=== PATIENT | female | born 1975 | race Caucasian/White ===

== ENCOUNTER 2017-01-21 08:50 | Emergency (ER) | payer BC ==
[~2017-01-21] VITALS: Ht 170.2 cm; Wt 90.9 kg
[~2017-01-21 08:50] MED LIST: CIPR500T87 PO; HYDR-3241 PO; NONE PER PT; ONDA4TAB10 PO; OXYC-302 PO
[2017-01-21 09:27] LABS: PATH.CAST-FLAG NOT PRESENT; SPERM-FLAG NOT PRESENT; SRC-FLAG NOT PRESENT; XTAL-FLAG NOT PRESENT; YLC-FLAG NOT PRESENT
[2017-01-21 09:29] LABS: HCG UR OBC PASS
[2017-01-21 09:45] LABS: HEMOGLOBIN 12.9 g/dL (11.7-16.4)
[2017-01-21 09:56] LABS: ASPARTATE AMINO TRANSFERASE 27 U/L (15-37); BLOOD UREA NITROGEN 12 mg/dL (7-18)
[2017-01-21] MEDS ORDERED: CEFTRIAXONE PMX 1GM/50ML 50 ML ONE (09:56)
[2017-01-21 09:59] VITALS: BP 111/58
[2017-01-21] MEDS ORDERED: SODIUM CHLORIDE FLUSH 10ML SYR IVF ONE (10:00)
[2017-01-21] MEDS ORDERED: CEFTRIAXONE PMX 1GM/50ML 50 ML IV ONE (10:00)
== END 2017-01-21 10:14 | disposition home or self-care (01) ==
LOC: ED 09:45
DX: N30.01 Acute cystitis with hematuria (principal)
CPT/HCPCS: 36415; 80053; 81001; 81025; 83690; 85025; 87077; 87086; 87186; 96374; 99284; J0696

== ENCOUNTER 2017-02-20 20:20 | Emergency (ER) | payer BC ==
[~2017-02-20] VITALS: Ht 170.2 cm; Wt 90.8 kg
[2017-02-20 23:23] LABS: BLOOD UREA NITROGEN 15 mg/dL (7-18)
[2017-02-21] MEDS ORDERED: ONDANSETRON ODT 4 MG PO ONE
[2017-02-21] MEDS ORDERED: KETOROLAC 30 MG/1 ML IVPush ONE
[2017-02-21 01:07] VITALS: BP 124/81
== END 2017-02-21 02:00 | disposition home or self-care (01) ==
LOC: ED 23:59
DX: R10.31 Right lower quadrant pain (principal); Z85.528 Personal history of other malignant neoplasm of kidney
CPT/HCPCS: 36415; 74176; 80048; 81001; 82040; 84703; 85025; 87077; 87086

== ENCOUNTER → 2018-06-29 | Outpatient (CLI) | payer BC ==
[~2018-06-29] MED LIST changes: +OMNIPAQUE 350 MG/ML, 150 ML BOTTLE ONE
== END | disposition home or self-care (01) ==
LOC: CFH 08:45
PROVIDERS: ATTEND Physician Assistant
DX: D35.02 Benign neoplasm of left adrenal gland (principal); N83.291 Other ovarian cyst, right side; Z87.891 Personal history of nicotine dependence
CPT/HCPCS: 74178; 82565; Q9967

== ENCOUNTER → 2020-03-03 | Outpatient (CLI) | payer OTHER, MEDICAID | END | disposition home or self-care (01) | LOC: EDSTATUS 12-27 07:15 → CFH 12:00 → EDSTATUS 12:30 | PROVIDERS: ATTEND Physician Assistant | DX: R31.0 Gross hematuria (principal); Z90.5 Acquired absence of kidney | CPT/HCPCS: 74178; 82565; Q9967 ==